=== PATIENT | female | born 1995 | race African-American/Black ===

== ENCOUNTER 2020-06-08 14:41 | Emergency (ER) | payer OTHER ==
[~2020-06-08] VITALS: Ht 162.6 cm; Wt 77.1 kg
[2020-06-08] MEDS ORDERED: CYCLOBENZAPRINE10 MG PO (17:23)
[2020-06-08] MEDS ORDERED: VOLTAREN-XR100 MG PO (17:23)
[2020-06-08] MEDS ORDERED: ORPHENADRINE C100 MG PO (17:23)
== END 2020-06-08 17:49 | disposition home or self-care (01) ==
LOC: ER 14:41
DX: M62.830 Muscle spasm of back (principal); M54.5 Low back pain